=== PATIENT | male | born 1990 | race Caucasian/White ===

== ENCOUNTER 2017-01-21 19:54 | Emergency (ER) | payer OTHER ==
[2012-12-06 08:50] VITALS: BMI 21.9
== END 2017-01-21 21:57 | disposition home or self-care (01) ==
LOC: D.ER 19:54
DX: S93.401A Sprain of unspecified ligament of right ankle, initial encounter (principal); W19.XXXA Unspecified fall, initial encounter; S89.92XA Unspecified injury of left lower leg, initial encounter; F17.200 Nicotine dependence, unspecified, uncomplicated